=== PATIENT | male | born 1950 | race Caucasian/White ===

== ENCOUNTER 2023-11-28 11:53 | Day surgery (SDC) | payer MEDICARE, BC, SELFPAY ==
[2023-11-28 12:13] VITALS: BMI 21.4
[2023-11-28 12:36] VITALS: BP 128/80; PULSE 70; RESP 16; TEMP 36.4; O2SAT 97
[2023-11-28] MEDS: Lactated Ringers 1,000 ML 50 ML IVCONT (12:38)
--- NOTE | 2023-11-28 13:29 | PC.NURSE ---
24 hour update documented on paper chart.
--- NOTE | 2023-11-28 14:32 | P.BOP_ITS ---
Brief Operative Note Date of Service: 11/28/23 Pre-op diagnosis: Screening Post-op diagnosis: other (Polyps) Procedure: Colonoscopy to cecum with bx/removal of polyps Surgeon: Pieter Cuba MD Anesthesia: MAC Was an Retail Support Manager used for this Procedure?: No Estimated blood loss (mL): 2.0 Pathology: other (A. Ascending colon polyp B. Transverse colon polyp) Condition: stable Disposition: PACU
[2023-11-28 14:33] VITALS: BP 124/76; PULSE 56; RESP 12; TEMP 36.4; O2SAT 96
[2023-11-28 14:48] VITALS: BP 111/68; PULSE 53; RESP 13; TEMP 36.6; O2SAT 100
--- NOTE | 2023-11-28 15:10 | OP_ITS ---
DATE OF SERVICE: 11/28/2023 SURGEON: Pieter Cuba MD INDICATIONS: The patient presents for evaluation of colorectal cancer screening and personal history of tubular adenoma of the colon. Full consent has been obtained from him for this, including risks of bleeding and perforation. PREOPERATIVE DIAGNOSIS: POSTOPERATIVE DIAGNOSIS: PROCEDURE PERFORMED: Colonoscopy to the cecum with biopsy and removal of polyps. ESTIMATED BLOOD LOSS: COMPLICATIONS: ANESTHESIA: Monitored anesthesia care. ASSISTANTS: SPECIMENS: PREOPERATIVE DIAGNOSES: Colorectal cancer screening and personal history of tubular adenoma of the colon. POSTOPERATIVE DIAGNOSES: Colorectal cancer screening, personal history of tubular adenoma of the colon, small colon polyps, diverticulosis, and internal hemorrhoids. DESCRIPTION OF PROCEDURE: The patient was placed in the left lateral decubitus position. The digital rectal exam revealed no abnormalities. The Olympus video pediatric colonoscope was then entered into the rectum and advanced easily to the cecum. Once in the cecum, I did identify normal-appearing cecal pouch with appendiceal orifice and a normal-appearing ileocecal valve. The entire cecum and ileocecal valve appeared normal. There was transillumination of light deep in the right lower quadrant. The scope was slowly withdrawn assessing all mucosal surfaces carefully. Preparation was excellent. I did not visualize any sign of colitis nor angiodysplasias. In the ascending colon and transverse colon, were flat, less than 5 mm polyps, which were each biopsied and completely removed with the cold biopsy forceps. I did not visualize any other polyps. There was a mild amount of sigmoid diverticulosis. In the rectum, scope was retroflexed, visualizing internal hemorrhoids, but no other pathology. The rectal mucosa appeared normal. The scope was straightened and withdrawn from the patient. He tolerated the procedure well and was returned to the recovery area in stable condition. IMPRESSION: 1. Small colon polyps. 2. Diverticulosis. 3. Internal hemorrhoids. PLAN: The results of the biopsies will be checked. I would recommend a repeat colonoscopy in 5 years for further screening and surveillance. He will, otherwise, see me on a p.r.n. basis. MD AUDREY Nick/LISA / [id number]
== END 2023-11-28 14:59 | disposition home or self-care (01) ==
PROVIDERS: PCP Internal Medicine; Visit Provider Internal Medicine
PROC: 0DJD8ZZ Inspection of Lower Intestinal Tract, Via Natural or Artificial Opening Endoscopic (ICD-10-PCS; CPT 45378; principal; 2023-11-28 13:10)
DX: Z12.11 Encounter for screening for malignant neoplasm of colon (principal); Z86.010 Personal history of colon polyps; D12.3 Benign neoplasm of transverse colon; K63.5 Polyp of colon; K57.30 Diverticulosis of large intestine without perforation or abscess without bleeding; K64.8 Other hemorrhoids; G89.4 Chronic pain syndrome; R51.9 Headache, unspecified; M81.0 Age-related osteoporosis without current pathological fracture; C61 Malignant neoplasm of prostate; Z79.899 Other long term (current) drug therapy; Z98.890 Other specified postprocedural states
CPT/HCPCS: 45380; 88305; J2704